=== PATIENT | female | born 1970 | race American Indian/Alaskan Native ===

== ENCOUNTER → 2017-03-19 | Outpatient (CLI) | payer MEDICAID ==
[~2017-03-19] MED LIST: ALEVE220 MG; AMLODIPINE BES2.5 MG PO; ASPIRIN325 MG PO; DIOVAN320 MG PO; GLUCOPHAGE1000 MG PO; HUMALOG MI100 UNIT/4 SUB-Q; HYDROCHLOROTH12.5 MG PO; PRILOSEC20 M1 PO; PROVENTIL OR V6.7 GM INH; QVAR8.7 G1 INH; SIMVASTATIN10 MG PO
== END | disposition disaster alternative care site (69) ==
LOC: GRAD 15:26
DX: D47.3 Essential (hemorrhagic) thrombocythemia (principal)